=== PATIENT | female | born 1985 | race Caucasian/White ===

== ENCOUNTER 2017-09-14 20:28 | Inpatient (IN) | payer BC ==
[2017-09-14 22:44] LABS: ABS Basophils 0.1 10^3/ul (0-0.2); ABS Eosinophils 0 10^3/ul (0-0.6); ABS Lymphocytes 1.3 10^3/ul (1.0-4.8); ABS Monocytes 0.5 10^3/ul (0-0.8); ABS Neutrophils 10.8 10^3/ul (1.5-7.7); ABS Nucleated RBC 0 10^3/ul; Eosinophil % 0.3 % (0-6); Hematocrit 37 % (35-47); Hemoglobin 12.7 g/dl (12.0-16.0); Lymphocyte % 10.3 % (25-47); Mean Corpuscular HGB Conc 35 g/dl (31-36); Mean Corpuscular Hemoglobin 30 pg (27-31); Mean Corpuscular Volume 86 fL (80-97); Mean Platelet Volume 9 um3 (7.4-10.4); Nucleated Red Blood Cells % 0; Platelet Count 222 10^3/ul (150-450); Red Blood Count 4.23 10^6/ul (4.0-5.4); Red Cell Distribution Width 14 % (10.5-15); White Blood Count 12.7 10^3/ul (3.5-10.8)
[2017-09-14] MEDS ORDERED: OBEPIDURAL* 250 ML EPIDURAL ONE (23:03)
[2017-09-14] MEDS ORDERED: Famotidine TAB* 20 MG PO PRN (23:41)
[2017-09-14] MEDS ORDERED: Sodium Citrate/Citric Acid* 15 ML UDC PO PRN (23:41)
[2017-09-14] MEDS ORDERED: EPHEDrine (Pressors)* 50 MG/ML VIAL IV PUSH PRN ×2 (23:41)
[2017-09-14] MEDS ORDERED: Phenylephrine IV* 40 MCG/ML 10 ML SYRINGE IV PUSH PRN ×2 (23:41)
[2017-09-15] MEDS ORDERED: Oxytocin in LR* 20 UNITS/1,000 ML BAG IVPB ONE (02:21)
[2017-09-15] MEDS ORDERED: Glycerin ADULT SUPP PR PRN (03:21)
[2017-09-15] MEDS ORDERED: Witch Hazel PAD* JAR TOPICAL PRN (03:21)
[2017-09-15] MEDS ORDERED: Acetaminophen TAB* 325 MG PO PRN (03:21)
[2017-09-15] MEDS ORDERED: Tetan/Diph/Pertus SYR(Tdap)* 0.5 ML SYR(BOOSTRIX) use SYR IM ONE (03:21)
[2017-09-15] MEDS ORDERED: Dibucaine 1% 28.35 GM TUBE PR PRN (03:21)
[2017-09-15] MEDS: Ibuprofen TAB* 600 MG PO PRN ×4 (04:42→22:02)
[2017-09-15] MEDS: Docusate CAP* 100 MG PO SCH ×3 (08:42→20:52)
[2017-09-15] MEDS: Simethicone TAB* 80 MG TAB.CHEW PO SCH ×3 (08:43→19:45)
[2017-09-15] MEDS: OBEPIDURAL* 250 ML EPIDURAL SCH (23:53)
[2017-09-16] MEDS: Ibuprofen TAB* 600 MG PO PRN ×2 (03:56→10:10)
[2017-09-16 07:58] LABS: ABS Basophils 0 10^3/ul (0-0.2); ABS Eosinophils 0.2 10^3/ul (0-0.6); ABS Lymphocytes 2.1 10^3/ul (1.0-4.8); ABS Monocytes 0.5 10^3/ul (0-0.8); ABS Neutrophils 9.3 10^3/ul (1.5-7.7); ABS Nucleated RBC 0 10^3/ul; Eosinophil % 1.9 % (0-6); Hematocrit 32 % (35-47); Hemoglobin 11.2 g/dl (12.0-16.0); Mean Corpuscular HGB Conc 35 g/dl (31-36); Mean Corpuscular Hemoglobin 30 pg (27-31); Mean Corpuscular Volume 87 fL (80-97); Mean Platelet Volume 9 um3 (7.4-10.4); Nucleated Red Blood Cells % 0; Platelet Count 177 10^3/ul (150-450); Red Blood Count 3.72 10^6/ul (4.0-5.4); Red Cell Distribution Width 14 % (10.5-15); White Blood Count 12.2 10^3/ul (3.5-10.8)
[2017-09-16] MEDS: Docusate CAP* 100 MG PO SCH (08:20)
[2017-09-16] MEDS ORDERED: Ferrous Gluconate TAB* 324 MG TAB PO SCH (09:00)
[2017-09-16 10:12] VITALS: BP 111/72
== END 2017-09-16 11:20 | disposition home or self-care (01) | DRG 560 ==
LOC: MCHOBOUT 20:28 → MCHOB 21:10
PROVIDERS: ADMIT Midwife; ATTEND Midwife
PROC: 10E0XZZ Delivery of Products of Conception, External Approach (ICD-10-PCS; principal; 2017-09-15)
PROC: 0KQM0ZZ Repair Perineum Muscle, Open Approach (ICD-10-PCS; 2017-09-15)
DX: O69.9XX0 Labor and delivery complicated by cord complication, unspecified, not applicable or unspecified (principal); O70.1 Second degree perineal laceration during delivery; Z3A.39 39 weeks gestation of pregnancy; Z37.0 Single live birth
CPT/HCPCS: 36415; 85025; 86850; 86900; 86901; A9270-GY